=== PATIENT | female | born 2000 | race Two or more races ===

== ENCOUNTER 2021-03-15 08:46 | Observation (INO) | payer BC ==
[~2021-03-15] VITALS: Ht 167.6 cm; Wt 85.4 kg
[2021-03-15 20:30] VITALS: BP 120/82
== END 2021-03-15 23:27 | disposition home or self-care (01) ==
LOC: ED 09:51 → ORIP 12:03 → 4NE 13:15
PROVIDERS: ADMIT Surgery; ATTEND Surgery
DX: K35.80 Unspecified acute appendicitis (principal); Z20.822 Contact with and (suspected) exposure to COVID-19